=== PATIENT | male | born 1985 | race Caucasian/White ===

== ENCOUNTER 2019-05-01 08:44 | Emergency (ER) | payer BC ==
--- NOTE | 2019-05-01 10:24 | RAD REPORT ---
EXAM DESCRIPTION: RAD - Clavicle Right - 05/01/2019 9:25 am CLINICAL HISTORY: PAIN COMPARISON: Chest Single View dated 05/01/2019 FINDINGS: No acute fracture or dislocation is identified.
--- NOTE | 2019-05-01 10:24 | RAD REPORT ---
EXAM DESCRIPTION: RAD - Chest Single View - 05/01/2019 9:25 am CLINICAL HISTORY: TRAUMA Chest pain. COMPARISON: ABDOMEN ACUTE SERIES dated 03/22/2009; ABDOMEN ACUTE SERIES dated 05/23/2004 FINDINGS: Portable technique limits examination quality. The lungs are grossly clear. The heart is normal in size. No displaced fractures. IMPRESSION: No acute intrathoracic process suspected.
--- NOTE | 2019-05-01 10:36 | EDPHYS ---
Physician Documentation [facility] Name: Luther Mcdowell Age: 33 yrs Sex: Male : 1985 Arrival Date: 05/01/2019 Time: 08:47 Bed 19 Private MD: ED Physician Kiel Lozada HPI: 05/01 11:50 This 33 yrs old Male presents to ER via Ambulatory with complaints of pm1 Clavicle Injury. 11:50 The patient or guardian complains of pain, that is acute, swelling. right clavicle. pm1 Context: The problem was sustained outdoors, resulted from pushed over by his horse while he was running besides it and he hit the ground with his right shoulder area, The patient reports no decreased range of motion. The patient reports no obvious deformity. Onset: The symptoms/episode began/occurred just prior to arrival. Modifying factors: the symptoms are alleviated by keeping right arm still, The symptoms are aggravated by flexing right pectoralis. Associated signs and symptoms: Pertinent negatives: abdominal pain, chest pain, dyspnea, shortness of breath, Headache, head injury, neck pain, LOC. Treatment prior to arrival includes: no previous treatment. The patient has not experienced similar symptoms in the past. The patient has not recently seen a physician. Historical: - Allergies: 09:02 No Known Allergies; iw - Home Meds: 09:02 None [Active]; iw - PMHx: 09:02 None; iw - PSHx: 09:02 hand surgery; iw - Immunization history:: Adult Immunizations up to date. - Social history:: Smoking status: Patient uses tobacco products, chewing tobacco. - Ebola Screening: : Patient negative for fever greater than or equal to 101.5 degrees Fahrenheit, and additional compatible Ebola Virus Disease symptoms Patient denies exposure to infectious person Patient denies travel to an Ebola-affected area in the 21 days before illness onset No symptoms or risks identified at this time. ROS: 11:50 Constitutional: Negative for fever, chills, and weight loss, Neck: Negative for injury, pm1 pain, and swelling, Cardiovascular: Negative for chest pain, palpitations, and edema, Respiratory: Negative for shortness of breath, cough, wheezing, and pleuritic chest pain, Abdomen/GI: Negative for abdominal pain, nausea, vomiting, diarrhea, and constipation, Back: Negative for injury and pain. 11:50 Skin: Negative for injury, rash, and discoloration, Neuro: Negative for headache, weakness, numbness, tingling, and seizure. 11:50 MS/extremity: Positive for pain, swelling, of the right clavicle, Negative for decreased range of motion, deformity. Exam: 11:50 Constitutional: This is a well developed, well nourished patient who is awake, alert, pm1 and in no acute distress. Head/Face: Normocephalic, atraumatic. Neck: Trachea midline, no thyromegaly or masses palpated, and no cervical lymphadenopathy. Supple, full range of motion without nuchal rigidity, or vertebral point tenderness. No Meningismus. Cardiovascular: Regular rate and rhythm with a normal S1 and S2. No gallops, murmurs, or rubs. Normal PMI, no JVD. No pulse deficits. Respiratory: Lungs have equal breath sounds bilaterally, clear to auscultation and percussion. No rales, rhonchi or wheezes noted. No increased work of breathing, no retractions or nasal flaring. Back: No spinal tenderness. No costovertebral tenderness. Full range of motion. 11:50 Abdomen/GI: Soft, non-tender, with normal bowel sounds. No distension or tympany. No guarding or rebound. No evidence of tenderness throughout. Skin: Warm, dry with normal turgor. Normal color with no rashes, no lesions, and no evidence of cellulitis. MS/ Extremity: Pulses equal, no cyanosis. Neurovascular intact. Full, normal range of motion. 11:50 Chest/axilla: Inspection: swelling across right chest that appears to be muscle spasm of pectoralis minor, Palpation: crepitus, is not appreciated, tenderness, that is mild, of the right clavicle, that totally reproduces the patient's complaints. 11:50 Neuro: Orientation: is normal, Motor: is normal, moves all fours, Sensation: is normal. Vital Signs: 09:01 BP 137 / 97; Pulse 110; Resp 16 S; Temp 97.8; Pulse Ox 100% on R/A; Weight 81.65 kg; iw Height 6 ft. 0 in. (182.88 cm); Pain 3/10; 10:07 BP 133 / 92; Pulse 103; Resp 15; Pulse Ox 100% on R/A; em 09:01 Body Mass Index 24.41 (81.65 kg, 182.88 cm) MDM: 08:51 Patient medically screened. pm1 08:57 Data reviewed: vital signs. Data interpreted: Pulse oximetry: on room air is 100 %. pm1 Interpretation: normal. 08:57 ED course: Patient refused pain medications in the ER. pm1 10:31 Counseling: I had a detailed discussion with the patient and/or guardian regarding: the pm1 historical points, exam findings, and any diagnostic results supporting the discharge/admit diagnosis, radiology results, the need for outpatient follow up, to return to the emergency department if symptoms worsen or persist or if there are any questions or concerns that arise at home. 05/01 08:56 Order name: Clavicle Right XRAY; Complete Time: 10:31 pm1 05/01 08:56 Order name: Chest Single View XRAY; Complete Time: 10:31 pm1 05/01 10:45 Order name: Sling; Complete Time: 10:54 pm1 Administered Medications: No medications were administered Disposition: 11:50 Co-signature as Attending Physician, Kiel Lozada MD. rn Disposition: 05/01/19 10:35 Discharged to Home. Impression: Strain of muscle and tendon of front wall of thorax. - Condition is Stable. - Discharge Instructions: Muscle Strain. - Prescriptions for Tylenol- Codeine #3 300-30 mg Oral Tablet - take 2 tablets by ORAL route every 6 hours As needed; 20 tablet. Cyclobenzaprine 10 mg Oral Tablet - take 1 tablet by ORAL route every 8 hours As needed; 30 tablet. - Medication Reconciliation Form, Thank You Letter, Antibiotic Education, Prescription Opioid Use form. - Follow up: Emergency Department; When: As needed; Reason: Worsening of condition. Follow up: Private Physician; When: 2 - 3 days; Reason: Recheck today's complaints, Continuance of care, Re-evaluation by your physician. - Problem is new. - Symptoms have improved. Signatures: Dispatcher [employer] Jackson Crawford, LEARNING ANALYST LEARNING ANALYST Valerie Garces RN RN iw Nieto, Roman, MD MD rn Marinas, Patrick, [employer] MACHINE OPERATOR pm1 Corrections: (The following items were deleted from the chart) 10:55 10:35 05/01/2019 10:35 Discharged to Home. Impression: Strain of muscle and tendon of em front wall of thorax. Condition is Stable. Forms are Medication Reconciliation Form, Thank You Letter, Antibiotic Education, Prescription Opioid Use. Follow up: Emergency Department; When: As needed; Reason: Worsening of condition. Follow up: Private Physician; When: 2 - 3 days; Reason: Recheck today's complaints, Continuance of care, Re-evaluation by your physician. Problem is new. Symptoms have improved. pm1
--- NOTE | 2019-05-01 10:36 | ER ---
Nurse's Notes [facility] Name: Luther Mcdowell Age: 33 yrs Sex: Male : 1985 Arrival Date: 05/01/2019 Time: 08:47 Bed 19 Private MD: Diagnosis: Strain of muscle and tendon of front wall of thorax Presentation: 05/01 08:57 Presenting complaint: Patient states: horse rammed into his back, right arm got jerked iw forward, now c/o pain to right collar bone pain, denies SOB, denies head or neck pain. Transition of care: patient was not received from another setting of care. Onset of symptoms was May 01, 2019. Risk Assessment: Do you want to hurt yourself or someone else? Patient reports no desire to harm self or others. Initial Sepsis Screen: Does the patient meet any 2 criteria? No. Patient's initial sepsis screen is negative. Does the patient have a suspected source of infection? No. Patient's initial sepsis screen is negative. Care prior to arrival: None. 08:57 Method Of Arrival: Ambulatory iw 08:57 Acuity: MIRZA 4 iw Historical: - Allergies: 09:02 No Known Allergies; iw - Home Meds: 09:02 None [Active]; iw - PMHx: 09:02 None; iw - PSHx: 09:02 hand surgery; iw - Immunization history:: Adult Immunizations up to date. - Social history:: Smoking status: Patient uses tobacco products, chewing tobacco. - Ebola Screening: : Patient negative for fever greater than or equal to 101.5 degrees Fahrenheit, and additional compatible Ebola Virus Disease symptoms Patient denies exposure to infectious person Patient denies travel to an Ebola-affected area in the 21 days before illness onset No symptoms or risks identified at this time. Screenin:38 Abuse screen: Denies threats or abuse. Nutritional screening: No deficits noted. em Tuberculosis screening: No symptoms or risk factors identified. Fall Risk None identified. Assessment: 09:41 General: Appears in no apparent distress. comfortable, Behavior is calm, cooperative. em Pain: Complains of pain in left clavicle Pain currently is 3 out of 10 on a pain scale. Neuro: Level of Consciousness is awake, alert, obeys commands, Oriented to person, place, time, situation, Appropriate for age. Cardiovascular: Capillary refill < 3 seconds Patient's skin is warm and dry. Respiratory: Airway is patent Respiratory effort is even, unlabored, Respiratory pattern is regular, symmetrical. GI: Abdomen is flat. Derm: Skin is intact, is healthy with good turgor, Skin is pink, warm \T\ dry. Musculoskeletal: Capillary refill < 3 seconds, Range of motion: intact in all extremities. Vital Signs: 09:01 BP 137 / 97; Pulse 110; Resp 16 S; Temp 97.8; Pulse Ox 100% on R/A; Weight 81.65 kg; iw Height 6 ft. 0 in. (182.88 cm); Pain 3/10; 10:07 BP 133 / 92; Pulse 103; Resp 15; Pulse Ox 100% on R/A; em 09:01 Body Mass Index 24.41 (81.65 kg, 182.88 cm) iw ED Course: 08:47 Patient arrived in ED. as 08:51 Rodolfo Fernandez NP is PHCP. pm1 08:51 Kiel Lozada MD is Attending Physician. pm1 09:01 Triage completed. iw 09:01 Arm band placed on. iw 09:16 Jackson Magdaleno LVN is Primary Nurse. em 09:26 Clavicle Right XRAY In Process Unspecified. EDMS 09:26 Chest Single View XRAY In Process Unspecified. EDMS 09:27 X-ray completed. Portable x-ray completed in exam room. Patient tolerated procedure mh1 well. 09:38 Patient has correct armband on for positive identification. Placed in gown. Bed in low em position. Call light in reach. Adult w/ patient. 10:54 No provider procedures requiring assistance completed. Patient did not have IV access em during this emergency room visit. 10:55 Sling applied to right arm. em Administered Medications: No medications were administered Outcome: 10:35 Discharge ordered by . pm1 10:54 Discharged to home ambulatory, with family. em 10:54 Condition: good 10:54 Discharge instructions given to patient, family, Instructed on discharge instructions, follow up and referral plans. no drinking with medication, no driving heavy equipment, medication usage, Demonstrated understanding of instructions, follow-up care, medications, Prescriptions given X 2. 10:55 Patient left the ED. em Signatures: Dispatcher [employer] EDMayela [facility] Jackson Magdaleno, SIZE MAKER SIZE MAKER Zuleyka Sol as Valerie Martinez, RN RN iw Rodolfo Fernandez, TRAMPOLINE TEAM COACH TRAMPOLINE TEAM COACH pm1
[2019-05-01 11:04] VITALS: TEMP 97.8; O2SAT 100
[2019-05-01 11:06] VITALS: BP 133/92
== END 2019-05-01 10:55 | disposition home or self-care (01) ==
LOC: ER 08:44
DX: S29.011A Strain of muscle and tendon of front wall of thorax, initial encounter (principal); W01.198A Fall on same level from slipping, tripping and stumbling with subsequent striking against other object, initial encounter; Y93.89 Activity, other specified; Y92.9 Unspecified place or not applicable; Z72.0 Tobacco use
CPT/HCPCS: 71045; 99283